=== PATIENT | male | born 1960 | race Caucasian/White ===

== ENCOUNTER 2018-06-08 17:02 | Emergency (ER) | payer OTHER ==
[~2018-06-08] VITALS: Ht 177.8 cm; Wt 81.7 kg
[~2018-06-08 17:02] MED LIST: ABILIFY20 MG PO; CHLORDIAZEPOXID25 M1 PO; COZAAR 25 MG TA25 M2 PO; DIOVAN160 MG PO; FLEXERIL PO; LOPRESSOR 50 MG50 M1 PO; NORCO 10-325 T1 EACH PO; NORVASC10 MG PO; PRENATAL FORMU1 EAC3 PO; ZOLOFT25 MG PO
[2018-06-08] MEDS ORDERED: LISINOPRIL20 MG PO (18:35)
[2018-06-08] MEDS ORDERED: PLAVIX 75 MG TA75 M1 PO (18:35)
[2018-06-08] MEDS ORDERED: PROCARDIA XL30 MG PO (18:35)
[2018-06-08] MEDS ORDERED: ZANAFLEX4 M2 PO (18:36)
[2018-06-08] MEDS ORDERED: NEURONTIN 300300 M1 PO (18:36)
[2018-06-08] MEDS ORDERED: CYMBALTA30 MG PO (18:37)
[2018-06-08] MEDS ORDERED: PERCOCET 10-321 EACH PO ×2 (18:38→19:23)
[2018-06-08 20:00] VITALS: BP 136/96
== END 2018-06-08 20:00 | disposition home or self-care (01) ==
LOC: ER 17:02
DX: M54.5 Low back pain (principal); G89.29 Other chronic pain; F17.210 Nicotine dependence, cigarettes, uncomplicated; Z88.2 Allergy status to sulfonamides; Z90.49 Acquired absence of other specified parts of digestive tract